=== PATIENT | male | born 1980 | race Hispanic/Latino ===

== ENCOUNTER 2024-01-06 15:24 | Emergency (ER) | payer SELFPAY ==
[2024-01-06 16:40] LABS: #Basophils 0.04 10x3/uL (0.0-0.2); #Monocytes 1.11 10x3/uL (0.0-1.1); %Basophils 0.3 % (0.0-2.0); %Eosinophils 0.8 % (0.0-6.0); %Lymphocytes 18.6 % (18.0-47.0); %Monocytes 9.1 % (0.0-10.0); %Neutrophils 70.8 % (40.0-75.0); Hematocrit 41.8 % (38.8-50.0); Hemoglobin 14.4 g/dL (13.5-17.5); Mean Corpuscular HGB CONC 34.4 g/dL (32.0-36.0); Mean Corpuscular Hemoglobin 30.3 pg (27.0-33.0); Mean Corpuscular Volume 87.8 fL (81.2-95.1); Mean Platelet Volume 9.4 fL (7.4-10.4); Platelet Count 248 10x3/uL (150-450); RBC Distribution Width 12.2 % (11.5-14.5); Red Blood Cell (RBC) Count 4.76 10x6/uL (4.32-5.72); White Blood Cell (WBC) Count 12.2 10x3/uL (3.5-10.5)
[2024-01-06] MEDS ORDERED: Droperidol 5 MG/2 ML VIAL ONE (16:40)
[2024-01-06] MEDS ORDERED: Pantoprazole 40 MG VIAL ONE (16:40)
[2024-01-06 16:50] LABS: PTT 24.7 sec (22.0-33.0); Prothrombin Time 11.2 sec (9.5-12.1)
[2024-01-06 16:55] LABS: ALT (SGPT) 26 U/L (8-55); AST (SGOT) 29 U/L (5-34); Albumin 3.3 g/dL (3.5-5.0); Alkaline Phosphatase 70 U/L (40-110); Anion Gap 13 mmol/L (10-20); BUN (Urea Nitrogen) 20 mg/dL (8.9-20.6); Bilirubin, Total 0.9 mg/dL (0.2-1.2); Calc. Creatinine Clearance 0 mL/min (70-130); Calcium 8.9 mg/dL (7.8-10.44); Carbon Dioxide 26 mmol/L (22-29); Chloride 103 mmol/L (98-107); Estimated GFR 105; Globulin 3.5 g/dL (2.4-3.5); Glucose 109 mg/dL (70-105); Lipase 17 U/L (8-78); Potassium 4.1 mmol/L (3.5-5.1); Protein, Total 6.8 g/dL (6.0-8.3); Sodium 138 mmol/L (136-145)
[2024-01-06 16:58] LABS: Troponin I Less than 0.010 ng/mL (< 0.028)
== END 2024-01-06 18:26 | disposition home or self-care (01) ==
LOC: CSHERS 15:24
DX: R06.6 Hiccough (principal); R11.2 Nausea with vomiting, unspecified
CPT/HCPCS: 71045; 80053; 83690; 84484; 85025; 85610; 85730; 93005; 96374; 96375; 96376; J1790; J2470